=== PATIENT | female | born 2000 | race Caucasian/White ===

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

== ENCOUNTER 2023-06-08 16:13 | Emergency (ER) | payer OTHER, BC ==
[2023-06-08] MEDS ORDERED: KETOROLAC 15 MG/ML 1 ML VIAL IM STA (16:35)
--- NOTE | 2023-06-08 16:35 | ED ---
Lower Extremity Injury HPI - General Chief Complaint: Extremity Injury, Lower Stated Complaint: Lt ankle injury Time Seen by Provider: 06/08/23 16:29 Source: patient, RN notes reviewed Mode of arrival: wheelchair Limitations: no limitations - History of Present Illness Initial Comments: Patient is a pleasant 23-year-old female presents the emergency room with complaints of pain and swelling to her left lateral ankle which began after rolling her ankle at work earlier today. 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 She reports immediate pain and swelling with range of motion impaired secondary to pain and swelling. She denies any injury to any other location or fall to the ground. She denies any numbness or tingling in her foot. She is past medical history significant for asthma. - Related Data Home Medications Medication Instructions Recorded Confirmed Albuterol Inhaler [Ventolin Hfa 1 puff INHALATION Q4H PRN 05/25/20 05/25/20 Inhaler] DULoxetine HCL [Cymbalta] 30 mg PO HS 05/25/20 05/27/20 busPIRone HCl [Buspar] 10 mg PO DAILY PRN 05/25/20 05/27/20 Allergies Allergy/AdvReac Type Severity Reaction Status Date / Time amoxicillin Allergy Rash/Hives Verified 06/08/23 16:26 latex Allergy "reddness" Verified 06/08/23 16:26 Sulfa (Sulfonamide Allergy Rash/Hives Verified 06/08/23 16:26 Antibiotics) Review of Systems ROS Statement: Those systems with pertinent positive or pertinent negative responses have been documented in the HPI. ROS Other: All systems not noted in ROS Statement are negative. Past Medical History Past Medical History: Asthma Additional Past Medical History / Comment(s): see Dr Sanabria H&P History of Any Multi-Drug Resistant Organisms: None Reported Past Surgical History: Ear Surgery Additional Past Surgical History / Comment(s): bilateral tubes placed in ears. 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 wisdom teeth. Past Anesthesia/Blood Transfusion Reactions: No Reported Reaction Past Psychological History: Anxiety, Panic Disorder Smoking Status: Never smoker General Exam Limitations: no limitations General appearance: alert, in no apparent distress Head exam: Present: atraumatic, normocephalic, normal inspection Eye exam: Present: normal appearance, PERRL, EOMI. Absent: scleral icterus, conjunctival injection, periorbital swelling ENT exam: Present: normal exam, mucous membranes moist Neck exam: Present: normal inspection, full ROM Respiratory exam: Absent: respiratory distress, accessory muscle use Cardiovascular Exam: Present: regular rate GI/Abdominal exam: Present: soft. Absent: distended, tenderness, guarding, rebound, rigid Left Ankle exam: Present: tenderness, swelling (Laterally), ecchymosis (Early stage of). Absent: full ROM (Limited by pain), laceration, deformity, crepitus, dislocation, erythema Neurovascular tendon exam: Present: no vascular compromise Gait: not tested/not observed Back exam: Present: normal inspection Neurological exam: Present: alert, oriented X3, CN II-XII intact Psychiatric exam: Present: normal affect, normal mood Course Vital Signs 06/08/23 06/08/23 16:15 17:03 Temperature 99.6 F 99.5 F Pulse Rate 96 86 Respiratory 16 18 Rate Blood Pressure 120/72 101/58 O2 Sat by Pulse 98 100 Oximetry Medical Decision Making - Medical Decision Making Was pt. sent in by a medical professional or institution (, PA, PAY CLERK, urgent care, hospital, or long term...) When possible be specific @ -No Did you speak to anyone other than the patient for history (EMS, parent, family, police, friend...)? What history was obtained from this source @ -No Did you review nursing and triage notes (agree or disagree)? Why? @ -I reviewed and agree with nursing and triage notes Were old charts reviewed (outside hosp., previous admission, EMS record, old EKG, old radiological studies, urgent care reports/EKG's, long term records)? Report findings @ -No old charts were reviewed Differential Diagnosis (chest pain, altered mental status, abdominal pain women, abdominal pain men, vaginal bleeding, weakness, fever, dyspnea, syncope, headache, dizziness, GI bleed, back pain, seizure, CVA, palpatations, mental health, musculoskeletal)? @ -Differential Musculoskeletal Muscular strain, contusion, ligament sprain, fracture, arthritis, septic arthritis, bursitis, cellulitis, muscle spasm, nerve compression, DVT, arterial occlusion, herpes zoster, electrolyte abnormality, tumor.... This is not meant to be in all inclusive list EKG interpreted by me (3pts min.). @ -None done X-rays interpreted by me (1pt min.). @ -X-ray left ankle: Nondisplaced transverse fracture of the lateral malleolus with soft tissue swelling. CT interpreted by me (1pt min.). @ -None done U/S interpreted by me (1pt. min.). @ -None done What testing was considered but not performed or refused? (CT, X-rays, U/S, labs)? Why? @ -None What meds were considered but not given or refused? Why? @ -None Did you discuss the management of the patient with other professionals (professionals i.e. DrEmma, PA, PAY CLERK, lab, RT, psych nurse, social insurance adviser, criminal lawyer, teacher, safety officer, case management associate)? Give summary @ -No Was smoking cessation discussed for >3mins.? @ -No Was critical care preformed (if so, how long)? @ -No Were there social determinants of health that impacted care today? How? (Homelessness, low income, unemployed, alcoholism, drug addiction, transportation, low edu. Level, literacy, decrease access to med. care, longterm, rehab)? @ -No Was there de-escalation of care discussed even if they declined (Discuss DNR or withdrawal of care, Hospice)? DNR status @ -No What co-morbidities impacted this encounter? (DM, HTN, Smoking, COPD, CAD, Cancer, CVA, ARF, Chemo, Hep., AIDS, mental health diagnosis, sleep apnea, morbid obesity)? @ -None Was patient admitted / discharged? Hospital course, mention meds given and route, prescriptions, significant lab abnormalities, going to OR and other pertinent info. @ -Ankle roll with pain and swelling and range of motion limited by pain will obtain x-ray of the ankle and give Toradol for pain. Will continue ice application. Pain improved with Toradol. X-ray reveals nondisplaced fracture of the lateral malleolus. Findings discussed with patient. Advised need for splint and nonweightbearing status with crutches. Splint applied without complications neurovascularly intact pre-and post splinting. Advised need for follow-up with orthopedist and to maintain continuous splint usage. May may return to work if able to accommodate need for crutches and nonweightbearing status. Question concerns answered. Return parameters the emergency room discussed. Will discharge home in stable condition with splint intact to nondisplaced fracture of the left lateral malleolus Undiagnosed new problem with uncertain prognosis? @ -No Drug Therapy requiring intensive monitoring for toxicity (Heparin, Nitro, Insulin, Cardizem)? @ -No Were any procedures done? @ -Yes, splint applied see procedure for details Diagnosis/symptom? @ -Post fracture of the lateral malleolus Acute, or Chronic, or Acute on Chronic? @ -Acute Uncomplicated (without systemic symptoms) or Complicated (systemic symptoms)? @ -Uncomplicated Side effects of treatment? @ -No Exacerbation, Progression, or Severe Exacerbation? @ -No Poses a threat to life or bodily function? How? (Chest pain, [place], ND, pneumonia, PE, COPD, DKA, ARF, appy, cholecystitis, CVA, Diverticulitis, Homicidal, S uicidal, threat to staff... and all critical care pts) @ -No Case discussed with Dr. Ellsworth. - Radiology Data Radiology results: report reviewed, image reviewed Disposition Clinical Impression: Fx lateral malleolus-closed Disposition: HOME SELF-CARE Condition: Stable Instructions (If sedation given, give patient instructions): Ankle Fracture (ED) Additional Instructions: Please maintain continuous use of splints. Utilize crutches no weightbearing until advised otherwise by orthopedist. Please contact and follow-up with orthopedist regarding fracture to your left malleolus. Utilize [id number] ibuprofen or Tylenol for pain as needed. Please return to the Emergency Department if symptoms worsen or any other concerns. Is patient prescribed a controlled substance at d/c from ED?: No Referrals: Enriqueta Jimenez III, MD [Primary Care Provider] - 1-2 days Lemuel Ignacio MD [Medical Doctor] - 1-2 days Time of Disposition: 17:19
--- NOTE | 2023-06-08 17:01 | XR ---
EXAMINATION TYPE: XR ankle complete LT DATE OF EXAM: 06/08/2023 COMPARISON: NONE HISTORY: Pain, rolling rolling injury TECHNIQUE: 3 views of the left ankle are submitted for evaluation. FINDINGS: Nondisplaced transverse fracture of the lateral malleolus at the level of the ankle joint w ith surrounding soft tissue edema. No dislocation. IMPRESSION: Nondisplaced acute fracture of the lateral malleolus.
[2023-06-08 17:47] VITALS: BP 110/78; PULSE 85; RESP 16; TEMP 98.6
== END 2023-06-08 17:47 | disposition home or self-care (01) ==
LOC: EC 16:13
DX: S82.65XA Nondisplaced fracture of lateral malleolus of left fibula, initial encounter for closed fracture (principal); J45.909 Unspecified asthma, uncomplicated; F41.9 Anxiety disorder, unspecified; Z79.899 Other long term (current) drug therapy; Z88.0 Allergy status to penicillin; Z88.2 Allergy status to sulfonamides; Z91.040 Latex allergy status; X50.1XXA Overexertion from prolonged static or awkward postures, initial encounter; Y99.0 Civilian activity done for income or pay
CPT/HCPCS: 73610; 99283; 96372; J1885

== ENCOUNTER → 2023-08-14 | Outpatient (CLI) | payer BC ==
[2023-08-14 16:14] LABS: Gliadin AB IgA, Deaminated Negative (Negative); Gliadin AB IgA, Unit 1.1 U/mL; Gliadin AB IgG, Deaminated Negative (Negative); Gliadin AB IgG, Unit 3.7 U/mL
== END | disposition home or self-care (01) ==
LOC: LABWHC1 07:13
PROVIDERS: ATTEND Family Medicine
DX: K58.9 Irritable bowel syndrome, unspecified (principal)
CPT/HCPCS: 36415; 82272; 83516; 87045; 87046

== ENCOUNTER 2024-08-06 10:08 | Emergency (ER) | payer BC ==
[2024-08-06 10:12] VITALS: TEMP 98.1
--- NOTE | 2024-08-06 11:30 | CT ---
EXAMINATION TYPE: CT brain wo con CT DLP: 1137.4 mGycm, Automated exposure control for dose reduction was used. DATE OF EXAM: 08/06/2024 11:22 AM COMPARISON: None. CLINICAL INDICATION:Female, 24 years old with history of Headache, hx of arachnoid cyst, headache, h/ o arachnoid cyst TECHNIQUE: Brain: Multiple axial CT images of the brain were obtained without IV contrast. . Coronal and sagitta l reformats reviewed. FINDINGS: Brain: Extra-axial spaces: No abnormal extra-axial fluid collections. Ventricular system: Within normal limits Cerebral parenchyma: No acute intraparenchymal hemorrhage or mass effect. The nunes-white junction is well differentiated. Cerebellum: Posterior just left of midline extra-axial cystic lesion measuring 2.3 x 1.8 cm. Cerebell um appears unremarkable. Mass effect: No evidence of midline shift. Intracranial vasculature: unremarkable Soft tissues: Normal. Calvarium/osseous structures: No depressed skull fracture. Paranasal sinuses and mastoid air cells: Clear Visualized orbits: Orbital contents are intact. IMPRESSION: 1. No acute intracranial process. 2. Posterior middle cranial fossa 2.3 cm arachnoid cyst. [facility], , 08/06/2024 11:28 AM
[2024-08-06] MEDS: KETOROLAC 15 MG/ML 1 ML VIAL IVP STA ×2 (11:32→14:04)
[2024-08-06] MEDS: SODIUM CHLORIDE 0.9% 1,000 ML IV STA (11:32)
[2024-08-06] MEDS: PROCHLORPERAZINE INJ 10 MG/2 ML VIAL IVP STA (11:34)
--- NOTE | 2024-08-06 11:34 | ED ---
Headache HPI - General Chief Complaint: Headache Stated Complaint: Headache Time Seen by Provider: 08/06/24 10:39 Source: patient, RN notes reviewed Mode of arrival: ambulatory Limitations: no limitations - History of Present Illness Initial Comments: This is a 24-year-old female who presents to the emergency department for a headache. Patient reports an intermittent headache over the last week. This is primarily in the left side and top of her head. She has associated photophobia and nausea. Reports a history of migraines. She is concerned because she also has a history of an arachnoid cyst that was diagnosed several years ago. She has only had one scan of this and due to insurance issues was not able to follow-up on it. She was last told that it was about 5 cm. Unsure if the headache may be related to this. She has tried taking Excedrin Migraine without any relief in symptoms. MD Complaint: headache, "migraine" - Related Data Home Medications Medication Instructions Recorded Confirmed Albuterol Inhaler [Ventolin Hfa 1 puff INHALATION Q4H PRN 05/25/20 05/25/20 Inhaler] DULoxetine HCL [Cymbalta] 30 mg PO HS 05/25/20 05/27/20 busPIRone HCl [Buspar] 10 mg PO DAILY PRN 05/25/20 05/27/20 Previous Rx's Medication Instructions Recorded Ketorolac [Toradol] 10 mg PO Q6HR PRN #15 tab 08/06/24 Ondansetron Odt [Zofran Odt] 4 mg PO Q8HR PRN #15 tab 08/06/24 Allergies Allergy/AdvReac Type Severity Reaction Status Date / Time amoxicillin Allergy Rash/Hives Verified 08/06/24 10:12 latex Allergy "reddness" Verified 08/06/24 10:12 Sulfa (Sulfonamide Allergy Rash/Hives Verified 08/06/24 10:12 Antibiotics) Review of Systems ROS Statement: Those systems with pertinent positive or pertinent negative responses have been documented in the HPI. ROS Other: All systems not noted in ROS Statement are negative. Past Medical History Past Medical History: Asthma Additional Past Medical History / Comment(s): see Dr Sanabria H&P History of Any Multi-Drug Resistant Organisms: None Reported Past Surgical History: Ear Surgery Additional Past Surgical History / Comment(s): bilateral tubes placed in ears. 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 wisdom teeth. Past Anesthesia/Blood Transfusion Reactions: No Reported Reaction Past Psychological History: Anxiety, Panic Disorder Smoking Status: Never smoker Past Alcohol Use History: Occasional Past Drug Use History: None Reported General Exam Limitations: no limitations General appearance: alert, in no apparent distress Head exam: Present: atraumatic, normocephalic, normal inspection Eye exam: Present: normal appearance, PERRL, EOMI. Absent: scleral icterus, conjunctival injection, periorbital swelling Respiratory exam: Present: normal lung sounds bilaterally. Absent: respiratory distress, wheezes, rales, rhonchi, stridor Cardiovascular Exam: Present: regular rate, normal rhythm, normal heart sounds. Absent: systolic murmur, diastolic murmur, rubs, gallop, clicks Neurological exam: Present: alert, oriented X3, CN II-XII intact Psychiatric exam: Present: normal affect, normal mood Skin exam: Present: warm, dry, intact, normal color. Absent: rash Course Vital Signs 08/06/24 10:10 Temperature 98.1 F Pulse Rate 80 Respiratory 18 Rate Blood Pressure 130/88 O2 Sat by Pulse 99 Oximetry Medical Decision Making - Medical Decision Making This is a 24 year old female who presents to the emergency department for a headache. Was pt. sent in by a medical professional or institution? @ -No Did you speak to anyone other than the patient for history? @ -No Did you review nursing and triage notes? @ -Yes, and I agree, it is accurate with regards to the patient's symptoms. Were old charts reviewed? @ -No Differential Diagnosis? @ -Differential Headache: Migraine, tension, cluster, carbon monoxide, central venous thrombosis, pension karma temporal arteritis, acute closure glaucoma, intercranial hemorrhage, mastoiditis, sinusitis, head injury, this is not meant to be an all-inclusive list. EKG interpreted by me (3pts min.)? @ -Not obtained X-rays interpreted by me (1pt min.)? @ -Not obtained CT interpreted by me (1pt min.)? @ -CT scan of the brain obtained. My interpretation identifies no evidence of an acute intracranial hemorrhage. U/S interpreted by me (1pt. min.)? @ -Not obtained What testing was considered but not performed? (CT, X-rays, U/S, labs)? Why? @ -None What meds were considered but not given? Why? @ -None Did you discuss the management of the patient with other professionals? @ -No Did you reconcile home meds? @ -No Was smoking cessation discussed for >3mins.? @ -No Was critical care preformed (if so, how long)? @ -No Were there social determinants of health that impacted care today? How? (Homelessness, low income, unemployed, alcoholism, drug addiction, transportation, low edu. Level, literacy, decrease access to med. care, [facility], rehab)? @ -No Was there de-escalation of care discussed even if they declined? (Discuss DNR or withdrawal of care, Hospice)? @ -No What co-morbidities impacted this encounter? (DM, HTN, Smoking, COPD, CAD, Cancer, CVA, Hep., AIDS, mental health diagnosis, sleep apnea, morbid obesity)? @ -Arachnoid cyst Was patient admitted / discharged? @ -Discharged. CT scan of the brain obtained demonstrating the arachnoid cyst. It measured approximately 2.3 cm, which is smaller than the measurement of 5 cm it was a few years ago per the patient. Patient treated with a migraine gurdeep ktail consisting of Toradol, Decadron, Compazine, and Benadryl along with a liter bolus of IV fluids. She had significant relief in symptoms afterwards. Prescription for Toradol and Zofran provided for any additional headaches or nausea. Case discussed with ED attending Dr. Scales. Return precautions reviewed in depth, the patient is instructed to return to the emergency department with any new, worsening, or concerning symptoms. Patient verbalized understanding. Undiagnosed new problem with uncertain prognosis? @ -None Drug Therapy requiring intensive monitoring for toxicity (Heparin, Nitro, Insulin, Cardizem)? @ -None Were any procedures done? @ -None Diagnosis/symptom? @ -Migraine Acute, or Chronic, or Acute on Chronic? @ -Acute Uncomplicated (without systemic symptoms) or Complicated (systemic symptoms)? @ -Uncomplicated Side effects of treatment? @ -None Exacerbation, Progression, or Severe Exacerbation] @ -Not applicable Poses a threat to life or bodily function? @ -No - Radiology Data Radiology results: report reviewed, image reviewed Disposition Clinical Impression: Headache Disposition: HOME SELF-CARE Instructions (If sedation given, give patient instructions): Acute Headache (ED) Additional Instructions: Return to the emergency department with any new, worsening, or concerning symptoms. Take the Toradol with Tylenol as needed for pain relief. If you choose to take the Toradol, do not take any other anti-inflammatories such as ibuprofen, take one or the other. Take the Zofran up to every 8 hours as needed for nausea and vomiting. Follow up with your primary care provider in 1-2 days. Prescriptions: Ketorolac [Toradol] 10 mg PO Q6HR PRN #15 tab PRN Reason: Pain Ondansetron Odt [Zofran Odt] 4 mg PO Q8HR PRN #15 tab PRN Reason: Nausea And Vomiting Is patient prescribed a controlled substance at d/c from ED?: No Referrals: Walter Gillespie MD [Primary Care Provider] - 1-2 days Time of Disposition: 12:18
[2024-08-06] MEDS: diphenhydrAMINE 50 MG/ML 1 ML VIAL IVP STA (11:36)
[2024-08-06] MEDS: DEXAMETHASONE SOD PHOSPHATE 10 MG/ML 1 ML VIAL IVP STA (11:42)
[2024-08-06 14:18] VITALS: BP 99/68; PULSE 87; RESP 16
== END 2024-08-06 14:05 | disposition home or self-care (01) ==
LOC: EC 10:08
CPT/HCPCS: 70450; 96361; 96374; 96375; 96376; 99284